=== PATIENT | male | born 1995 | race Two or more races ===

== ENCOUNTER 2024-10-06 13:03 | Outpatient (AMB) | payer OTHER, SELFPAY ==
--- NOTE | 2024-10-06 13:18 | A.OFFVIS_ITS ---
Vital Signs 10/06/24 13:21 Height 5 ft 9 in Weight 215 lb BMI 31.7 Intake Visit Reasons: OV-RT shoulder up-follow up Intake Note: Phan is a 29 year old right dominant male who presents today for a follow up of his right shoulder pain, DOI 08/08/23. Patient reports he is doing well. He continues to go to PT, finds it helpful. He is not taking anything for pain at this time. Allergies ibuprofen Allergy (Unknown, Verified 10/06/24 13:19) chest wall pain HPI HPI OV-RT shoulder up-follow up: Details: Mr. Simms is a 29-year-old right-hand dominant male who presents to the office today for follow-up of right shoulder pain. Date of injury was 08/08/2023 when he was loading a truck at work and he hyperextended his arm laterally. He felt immediate pain in his shoulder. At his last appointment on 08/25/2024 I recommended attending physical therapy in which he has begun doing this and has noticed a slight improvement in pain and range of motion but continues to have difficulties. 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 Pain with cross-body reach. 3/5 strength with empty can. Negative drop arm. NVI. Assessment & Plan Assessment & Plan (1) Painful arc syndrome of right shoulder: Code(s): M75.101 - Unspecified rotator cuff tear or rupture of right shoulder, not specified as traumatic Category: Medical (2) Shoulder subluxation, right: Code(s): S43.001A - Unspecified subluxation of right shoulder joint, initial encounter Category: Medical Plan Mr. Simms is a 29-year-old right-hand dominant male who presents to the office today for follow-up of right shoulder pain. Date of injury was 08/08/2023 when he was loading a truck at work and he hyperextended his arm laterally. He felt immediate pain in his shoulder. At his last appointment on 08/25/2024 I recommended attending physical therapy in which he has begun doing this and has noticed a slight improvement in pain and range of motion but continues to have difficulties. on the office today, we discussed continuing physical therapy. I have also ordered an MRI to further evaluate the integrity of the shoulder and surrounding structures. He will remain out of work until his follow-up. Follow up will be in 6 weeks, sooner if needed. Orders: Orders MR shoulder RT wo con Today M75.101 - Unspecified rotator cuff tear or rupture of right shoulder, not specified as traumatic Coding Level of Care Code Est Pt Level 3 (14631) Diagnoses Painful arc syndrome of right shoulder M75.101 Shoulder subluxation, right S43.001A
[2024-10-06 13:21] VITALS: BMI 31.7
== END 2024-10-06 13:36 | disposition home or self-care (01) ==
LOC: HO.HOS 13:04
PROVIDERS: PCP Internal Medicine; Visit Provider Physician Assistant
DX: M75.101 Unspecified rotator cuff tear or rupture of right shoulder, not specified as traumatic (principal); S43.001A Unspecified subluxation of right shoulder joint, initial encounter; Z04.2 Encounter for examination and observation following work accident
CPT/HCPCS: 99213

== ENCOUNTER → 2024-10-06 13:03 | Outpatient (BNVA) | payer OTHER, SELFPAY | PROVIDERS: PCP Internal Medicine; Visit Provider Physician Assistant | DX: M75.101 Unspecified rotator cuff tear or rupture of right shoulder, not specified as traumatic (principal); S43.001D Unspecified subluxation of right shoulder joint, subsequent encounter; X58.XXXD Exposure to other specified factors, subsequent encounter | CPT/HCPCS: 99212 ==

== ENCOUNTER → 2024-10-19 07:14 | Outpatient (BNV) | payer OTHER, SELFPAY | PROVIDERS: PCP Internal Medicine; Visit Provider Radiology Diagnostic Radiology | DX: M75.111 Incomplete rotator cuff tear or rupture of right shoulder, not specified as traumatic (principal) | CPT/HCPCS: 73221 ==

== ENCOUNTER 2024-10-19 07:16 | Outpatient (REF) | payer OTHER, SELFPAY ==
--- NOTE | ~2024-10-19 | MR_ITS ---
EXAMINATION: MR SHOULDER WITHOUT CONTRAST, RIGHT CLINICAL INFORMATION: 29-year-old male. Right shoulder pain when lifting arm, fall with dislocation 08/08/2024. Evaluate for rotator cuff pathology. COMPARISON: No prior MRI. The right shoulder radiographs 08/08/2024. TECHNIQUE: Multiplanar multisequence MR imaging of the right shoulder was done without IV contrast. Examination performed on a 1.5 Maryana Siemens unit utilizing standard sequences. FINDINGS: Rotator Cuff and Biceps Tendon: Supraspinatus: There is a partial bursal surface tear of the most anterior tendon, approximately 50% of tendinous width, extending from the critical zone to the myotendinous junction (series 8, image 12; series 11, images 20-21). The tendon is otherwise intact. There is no abnormality of the muscle belly. Infraspinatus: Intact and normal in signal without definite tear. Normal-appearing muscle belly. Subscapularis: Intact and normal in signal. The muscle belly is normal. Teres Minor: Intact and normal in signal. The muscle belly is normal. Biceps Long Head: Normally located within the bicipital groove. There is a subtle central interstitial linear T2 signal alteration consistent with a subtle delamination type tear. (Series 5, images 14-18). The tendon within the rotator interval is normal in signal. The bicipital anchor is intact. AC Joint and Acromiohumeral Arch: The AC joint demonstrates minimal periarticular edema and minimal joint capsular distention superiorly. There is no undersurface abnormality. Cannot exclude low-grade AC injury. There is no supraspinatus outlet stenosis. There is a type IV acromion. Glenohumeral Joint and Labrum: There is normal joint fluid. There are no cartilaginous abnormalities or significant degenerative changes. The glenoid labrum demonstrates mild signal hyperintensity of the anterosuperior region, without definite focal tear identified. Labrum is otherwise intact and normal in signal. Osseous Structures: Mild periarticular edema within the AC joint. Subtle edema within the posterior lateral humeral head, possible resolving contusive injury without definite Hill-Sachs fracture. Spino-glenoid Notch: Normal. Quadrilateral Space: Normal. Other: Mild hyperintensity in the subacromial/subdeltoid bursa, consistent with mild bursitis. The glenohumeral ligaments appear intact without definite thickening. MR/MR shoulder RT wo con IMPRESSION: 1. There is a partial bursal surface tear of the most anterior supraspinatus tendon within the critical zone extending to the myotendinous junction. Remainder of the tendon is intact. Normal muscle belly. 2. There is no additional rotator cuff tear or injury. 3. Mild periarticular edema within the AC joint, possibly representing low-grade AC injury. 4. Mild edema within the posterior lateral humeral head without Hill-Sachs fracture. This may represent a resolving bone contusion. 5. Mild signal hyperintensity within the anterosuperior labrum, without definitive tear seen. 6. Subtle delamination type tear of the long head of the biceps tendon. 7. Mild subacromial/subdeltoid bursitis. Electronically signed by: Rogelio Olmos MD 10/20/2024 09:26 AM EDT
== END 2024-10-19 07:17 | disposition home or self-care (01) ==
LOC: HO.MRI 07:16
PROVIDERS: PCP Internal Medicine; Visit Provider Physician Assistant
DX: M75.101 Unspecified rotator cuff tear or rupture of right shoulder, not specified as traumatic (principal)
CPT/HCPCS: 73221

== ENCOUNTER 2024-11-07 10:13 | Outpatient (RCR) | payer OTHER, SELFPAY ==
--- NOTE | 2024-12-05 13:58 | MHC.PT.DC ---
[facility] [place] Office [place] Office [place] Office [address] Km[address] Benitez [address] [facility] [phone] F: [phone] F: [phone] F: [phone] F: [phone] Physical Therapy Discharge Report Diagnosis: RIGHT SHOULDER INJURY (KP) Date of Surgery: N/A Date of Evaluation: 09/20/24 Date of Discharge: 12/05/24 Treatments to Date: 12 Cancellations to Date: 0 No Shows to Date: 0 Discharge Status: Improved Function Independent with HEP Discharge Summary: Pt has met STGs at this time and is progressing well with LTGs significant improvement in sxs over the last few visits and continually progressing program resistance/reps. He has not scheduled appointments in > 30 days so we will DC at this time Electronically signed by: Calli Morrell PT DPT Please sign and return to therapist. Thank you for your referral.
== END 2024-12-05 13:58 | disposition home or self-care (01) ==
LOC: HO.PT 10:13
PROVIDERS: PCP Internal Medicine; Visit Provider Physician Assistant
DX: M75.101 Unspecified rotator cuff tear or rupture of right shoulder, not specified as traumatic (principal); S43.001D Unspecified subluxation of right shoulder joint, subsequent encounter
CPT/HCPCS: 97110; 97140; 97161; 97530

== ENCOUNTER 2024-11-18 09:46 | Outpatient (AMB) | payer OTHER, SELFPAY ==
--- NOTE | 2024-11-18 09:49 | A.OFFVIS_ITS ---
Vital Signs 11/18/24 09:51 Height 5 ft 9 in Weight 215 lb BMI 31.7 Intake Visit Reasons: OV - right shoulder MRI review Intake Note: Phan is a 29 year old right dominant male who presents today for a MRI review of his right shoulder, DOI 08/08/23. 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 IMPRESSION: 1. There is a partial bursal surface tear of the most anterior supraspinatus tendon within the critical zone extending to the myotendinous junction. Remainder of the tendon is intact. Normal muscle belly. 2. There is no additional rotator cuff tear or injury. 3. Mild periarticular edema within the AC joint, possibly representing low-grade AC injury. 4. Mild edema within the posterior lateral humeral head without Hill-Sachs fracture. This may represent a resolving bone contusion. 5. Mild signal hyperintensity within the anterosuperior labrum, without definitive tear seen. 6. Subtle delamination type tear of the long head of the biceps tendon. 7. Mild subacromial/subdeltoid bursitis. Allergies ibuprofen Allergy (Unknown, Verified 11/18/24 09:52) chest wall pain shrimp [SHRIMP] Allergy (Unknown, Verified 11/18/24 09:52) ANAPHYLAXIS HPI HPI OV - right shoulder MRI review: Details: Mr. Catarina Celis is a 29-year-old [id number] male who presents to the office today for MRI review of the right shoulder. Date of injury was 08/08/2023 when he was loading a truck for work and felt his arm hyperextend. Patient reports that today he is feeling much better with little pain in the shoulder. He is looking returned back to work full-time regular duty. 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 Pain with cross-body reach. 4/5 strength with empty can. Negative drop arm. NVI. Assessment & Plan Assessment & Plan (1) Shoulder subluxation, right: Code(s): S43.001A - Unspecified subluxation of right shoulder joint, initial encounter Category: Medical Plan Mr. Catarina Celis is a 29-year-old eykdj-euky-eazohxld male who presents to the office today for MRI review of the right shoulder. Date of injury was 08/08/2023 when he was loading a truck for work and felt his arm hyperextend. Patient reports that today he is feeling much better with little pain in the shoulder. He is looking returned back to work full-time regular duty. On the office today, the patient was given a return to work note to return back full-time regular duty. MRI was reviewed with the patient and no surgical indications are warranted at this time. He will continue with physical therapy until all sessions have been completed. His follow up with Orthopedics will be p.r.n., sooner if needed. MRI obtained on 10/19/2024 of the right shoulder: IMPRESSION: 1. There is a partial bursal surface tear of the most anterior supraspinatus tendon within the critical zone extending to the myotendinous junction. Remainder of the tendon is intact. Normal muscle belly. 2. There is no additional rotator cuff tear or injury. 3. Mild periarticular edema within the AC joint, possibly representing low-grade AC injury. 4. Mild edema within the posterior lateral humeral head without Hill-Sachs fracture. This may represent a resolving bone contusion. 5. Mild signal hyperintensity within the anterosuperior labrum, without definitive tear seen. 6. Subtle delamination type tear of the long head of the biceps tendon. 7. Mild subacromial/subdeltoid bursitis. Coding Level of Care Code Est Pt Level 3 (99999) Diagnoses Shoulder subluxation, right S43.001A
[2024-11-18 09:51] VITALS: BMI 31.7
== END 2024-11-18 10:09 | disposition home or self-care (01) ==
LOC: HO.HOS 09:46
PROVIDERS: PCP Internal Medicine; Visit Provider Physician Assistant
DX: S43.001A Unspecified subluxation of right shoulder joint, initial encounter (principal); Z04.2 Encounter for examination and observation following work accident
CPT/HCPCS: 99213

== ENCOUNTER → 2024-11-18 09:46 | Outpatient (BNVA) | payer OTHER, SELFPAY | PROVIDERS: PCP Internal Medicine; Visit Provider Physician Assistant | DX: S43.001D Unspecified subluxation of right shoulder joint, subsequent encounter (principal) | CPT/HCPCS: 99212 ==